=== PATIENT | female | born 1960 | race Hispanic/Latino ===

== ENCOUNTER 2018-05-21 11:46 | Emergency (ER) | payer OTHER ==
[2018-05-21 11:53] VITALS: BMI 35.6
[2018-05-21 11:54] VITALS: BP 129/88; PULSE 85; RESP 18; TEMP 98.9; O2SAT 95
--- NOTE | 2018-05-21 12:19 | C.PDOC ---
History Of Present Illness 58 year old female presents to the emergency department with complaints of pain to her right shoulder with decreased ROM status post fall yesterday. Patient states she tripped on uneven ground and fell, landing on her knee and right shoulder. Patient denies landing on her head, LOC, numbness, tingling, or weakness. She has not taken any pain medications. Time Seen by Provider: 05/21/18 12:03 Chief Complaint (Nursing): Upper Extremity Problem/Injury History Per: Patient History/Exam Limitations: no limitations Onset/Duration Of Symptoms: Days Current Symptoms Are (Timing): Still Present Past Medical History Reviewed: Historical Data, Nursing Documentation, Vital Signs Vital Signs: Last Vital Signs Temp 98.9 F 05/21/18 11:59 Pulse 85 05/21/18 11:59 Resp 18 05/21/18 11:59 BP 129/88 05/21/18 11:59 Pulse Ox 95 05/21/18 12:57 - Medical History PMH: Arthritis (GENERALIZED), Depression, Fractures (RIGHT ANKLE), HTN, Hypercholesterolemia, Hyperlipidemia Denies: Chronic Kidney Disease Family History: States: No Known Family Hx - Social History Hx Tobacco Use: Yes Hx Alcohol Use: Yes Hx Substance Use: No - Immunization History Hx Tetanus Toxoid Vaccination: No Hx Influenza Vaccination: No Hx Pneumococcal Vaccination: No Review Of Systems Constitutional: Negative for: Fever, Chills Eyes: Negative for: Vision Change Cardiovascular: Negative for: Chest Pain Respiratory: Negative for: Shortness of Breath Gastrointestinal: Negative for: Nausea Musculoskeletal: Positive for: Other (Right shoulder pain with decreased ROM) Neurological: Positive for: Other (No LOC). Negative for: Weakness, Numbness Physical Exam - Physical Exam Appears: Non-toxic, No Acute Distress Skin: Warm, Dry, No Rash, Other (Abrasion on R distal medial humerus) Head: Atraumatic, Normacephalic Eye(s): bilateral: Normal Inspection Oral Mucosa: Moist Neck: No Midline Cervical Tenderness, Supple Extremity: Tenderness (to R anterior shoulder; to bicipital tendon groove), No Swelling (of humerus forearm or wrist), Other (no tenderness to R humerus forearm or wrist; full ROM of hand, digits, and elbow; no bruising) Pulses: Left Radial: Normal, Right Radial: Normal Neurological/Psych: Oriented x3, Normal Speech, Normal Motor, Normal Sensation ED Course And Treatment O2 Sat by Pulse Oximetry: 95 (RA) Pulse Ox Interpretation: Normal - Other Rad Right Shoulder X-Ray X-Ray: Read By Radiologist Interpretation: FINDINGS: BONES: No acute fracture or destructive bony lesion identified. JOINTS: Normal. Glenohumeral and acromioclavicular joints preserved. No osteoarthritis. SOFT TISSUES: Normal. OTHER FINDINGS: None. IMPRESSION: Unremarkable radiographs of the right shoulder. Progress Note: Right shoulder x-ray ordered. Toradol and adacel administered. On re-assessment, patient is resting comfortably and tolerating PO. Medical Decision Making Medical Decision Making: pt s/p fall onto elbow yesterday. c/o pain to shoulder, cxray reviewed by me, no fx or dislocation noted. f/u ortho Disposition - Disposition Referrals: Eric Garcia III, MD [Staff Provider] - Disposition: HOME/ ROUTINE Disposition Time: 12:49 Condition: GOOD Additional Instructions: Please apply cold compresses to right shoulder several times a day over a light cloth or dishtowel. Continue to take meloxicam for pain. May also take Tylenol as prescribed. Try to move shoulder as much as possible so it doesn't freeze up on you. Please follow up with Dr Garcia if pain persists after a week. 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 - Scribe Statement The provider has reviewed the documentation as recorded by the Scribe Trinh Pool All medical record entries made by the Scribe were at my direction and personally dictated by me. I have reviewed the chart and agree that the record accurately reflects my personal performance of the history, physical exam, medical decision making, and the department course for this patient. I have also personally directed, reviewed, and agree with the discharge instructions and disposition.
[2018-05-21] MEDS ORDERED: Tdap Vaccine 0.5 ml Vial (10-64 yrs) IM ONE ×2 (12:31→12:40)
--- NOTE | 2018-05-21 14:00 | RAD ---
Date of service: 05/21/2018 PROCEDURE: Radiographs of the Right Shoulder HISTORY: fell onto shoulder, pain with rom COMPARISON: No prior. FINDINGS: BONES: No acute fracture or destructive bony lesion identified. JOINTS: Normal. Glenohumeral and acromioclavicular joints preserved. No osteoarthritis. SOFT TISSUES: Normal. OTHER FINDINGS: None. IMPRESSION: Unremarkable radiographs of the right shoulder.
== END 2018-05-21 13:20 | disposition home or self-care (01) ==
LOC: C.ER 11:46
DX: S49.91XA Unspecified injury of right shoulder and upper arm, initial encounter (principal); W01.0XXA Fall on same level from slipping, tripping and stumbling without subsequent striking against object, initial encounter; I10 Essential (primary) hypertension; E78.00 Pure hypercholesterolemia, unspecified; Z72.0 Tobacco use; Z23 Encounter for immunization
CPT/HCPCS: 73030; 90471; 90715; 96372; 99283; J1885

== ENCOUNTER 2018-10-24 11:17 | Emergency (ER) | payer OTHER ==
[2018-10-24 11:17] VITALS: BMI 35.6
[2018-10-24 11:49] VITALS: O2SAT 95
[2018-10-24] MEDS ORDERED: Lidocaine 5% Patch TD STA (12:17)
[2018-10-24] MEDS ORDERED: Lidocaine 5% Patch TD ONE (12:31)
--- NOTE | 2018-10-24 12:47 | C.PDOC ---
History Of Present Illness 58 year old female, whose past medical history includes right shoulder fracture and arthritis four months ago, presents to the ED for worsening right shoulder pain. Patient states she took Percocet last night without relief. She denies extremity numbness/weakness or recent trauma to the site. Time Seen by Provider: 10/24/18 12:00 Chief Complaint (Nursing): Upper Extremity Problem/Injury History Per: Patient History/Exam Limitations: no limitations Onset/Duration Of Symptoms: Days Current Symptoms Are (Timing): Worse Quality: "Pain" Additional History Per: Patient Past Medical History Reviewed: Historical Data, Nursing Documentation, Vital Signs Vital Signs: Last Vital Signs Temp 97.6 F 10/24/18 11:48 Pulse 82 10/24/18 11:48 Resp 20 10/24/18 11:48 BP 150/97 H 10/24/18 11:48 Pulse Ox 95 10/24/18 11:48 - Medical History PMH: Arthritis (GENERALIZED), Depression, Fractures (RIGHT ANKLE), HTN, Hypercholesterolemia, Hyperlipidemia Denies: Chronic Kidney Disease Surgical History: No Surg Hx Family History: States: Unknown Family Hx - Social History Hx Tobacco Use: Yes Hx Alcohol Use: Yes Hx Substance Use: No - Immunization History Hx Tetanus Toxoid Vaccination: No Hx Influenza Vaccination: No Hx Pneumococcal Vaccination: No Review Of Systems Musculoskeletal: Positive for: Shoulder Pain (right) Neurological: Negative for: Weakness, Numbness Physical Exam - Physical Exam Appears: Non-toxic, No Acute Distress Skin: Normal Color, Warm, Dry Back: Muscle Spasm (right trapezius ), Other (tenderness over right trapezius ) Extremity: Normal ROM, Capillary Refill (less than 2 seconds ) Pulses: Left Radial: Normal, Right Radial: Normal Neurological/Psych: Oriented x3, Normal Speech, Normal Cognition, Normal Sensation, Other (normal strength ) ED Course And Treatment O2 Sat by Pulse Oximetry: 95 (on RA) Pulse Ox Interpretation: Normal Medical Decision Making Medical Decision Making: Impression: 58 year old female with right shoulder pain Plan: * Toradol IM * Lidoderm TD * reassess and disposition Progress: Toradol IM and Lidoderm TD given. pt reports dec pain s/p toradol, d/c home with nsaid and muscle relaxant. Disposition Counseled Patient/Family Regarding: Diagnosis, Need For Followup, Rx Given - Disposition Referrals: Shaik Doty MD [Staff Provider] - Disposition: HOME/ ROUTINE Disposition Time: 13:00 Condition: IMPROVED Additional Instructions: Take off lidoderm patch in 12 hours. Use warm compresses to painful area on shoulder several times a day. Continue taking Aleve as prescribed. Can take muscle relaxant up to three times a day, makes you sleepy, so no driving or operating machinery with this medicine. Follow up with your pmd or orthopedist. 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 - Scribe Statement The provider has reviewed the documentation as recorded by the Scribe (Purvi Coates) All medical record entries made by the Scribe were at my direction and pe rsonally dictated by me. I have reviewed the chart and agree that the record accurately reflects my personal performance of the history, physical exam, medical decision making, and the department course for this patient. I have also personally directed, reviewed, and agree with the discharge instructions and disposition.
[2018-10-24 13:31] VITALS: BP 144/94; PULSE 66; RESP 18; TEMP 98.1
== END 2018-10-24 13:26 | disposition home or self-care (01) ==
LOC: C.ER 11:17
DX: M62.838 Other muscle spasm (principal)
CPT/HCPCS: 96372; 99284; J1885